=== PATIENT | female | born 1975 | race Caucasian/White ===

== ENCOUNTER 2017-11-25 17:09 | Emergency (ER) | payer MEDICAID, SELFPAY ==
[2017-11-25 17:10] VITALS: BP 102/66; PULSE 88; RESP 16; TEMP 37.1; O2SAT 98; BMI 25.2
--- NOTE | 2017-11-25 18:07 | ED.VISSUMM ---
- ER Visit Summary Date of Service: 11/25/17 Chief Complaint: Left elbow bursitis now red History of Present Illness: The patient is a 42 F had a left elbow olecranon bursitis for several months. She has not had any treatment for it. Yesterday started developing redness. No fever. There is more discomfort. She denies any fall or trauma. No prior elbow surgery. She is not diabetic. Physical Examination: Well-appearing middle-age female. Vital signs are stable and afebrile. She does not look septic or toxic. She is in no distress. H EENT exam unremarkable. Neck nontender. Lungs clear to auscultation. Heart regular rhythm no murmur. Abdomen soft nontender. She is moving all 4 extremities they are neurovascularly intact. The left elbow the posterior aspect she has an obvious bursitis. The skin over it is red and warm consistent with a cellulitis. The elbow joint has completely full range of motion. There is no signs of septic joint. There is no lymphangitic streaking. There is no axillary lymphadenopathy on the left the redness on the posterior elbow is over the bursa and is approximately 2 x 3 inches. Her left forearm, wrist and hand are nontender neurovascular Test Results: Procedure note: Let was applied her left elbow. Using a 22-gauge needle I withdrew approximately 10 cc of bloody bursa sac fluid. Patient tolerated procedure well. There was no pus. It will be sent to the lab for Gram stain, cultures and crystal evaluation. This appears to be a traumatic bursitis. Emergency Department Course and Treatment: Patient be started on p.o. Bactrim and p.o. Keflex for the cellulitis. I will attempt to obtain fluid from the left olecranon bursa and send that for culture, stain and crystals. Treatment Plan: Clinically the patient can move her elbow easily. I think she is a superficial cellulitis with an underlying traumatic bursitis. She does not have a septic arthritis. She will be treated with Keflex 4 times daily for 10 days. Bactrim twice daily for 10 days. And follow-up with Dr. Jason Don of orthopedics. To return if this looks worse, she develops a fever or is having increasing pain. Disposition: Discharge Impression: Acute left elbow olecranon bursitis Superficial cellulitis Versus aspiration by ER with pending fluid studies and cultures This note was generated with Dragon dictation software. It may contain incorrect words, spelling, and punctuation that were not noted in review of the chart prior to signing ED Disposition - Plan for ED Patient: Chief Complaint: Upper Extremity Injury Referrals: Ross Singh DO [Primary Care Provider] -
[2017-11-25] MEDS: Cephalexin 250 MG Capsule 500 MG PO ×2 (18:44→23:40)
[2017-11-25] MEDS: Lidocaine/Epi/Tetracaine 50 ML 1 APPLIC TOPICAL (18:44)
[2017-11-25] MEDS: Smz/Tmp Ds Tablet 1 TABLET PO ×2 (18:44→23:40)
--- NOTE | 2017-11-25 23:38 | ED.DEP ---
ED Disposition - Plan for ED Patient: Disposition: Home or Assisted Living Chief Complaint: Upper Extremity Injury Instructions: ED Bursitis Elbow Olecranon, ED Infec Skin Cellulitis Prescriptions: Cephalexin [Keflex] 500 mg PO Q6 #40 cap Smz/Tmp Ds [Bactrim Ds] 1 tab PO BID #20 tab Referrals: Jason Don MD [STAFF PHYSICIAN] - As soon as possible Ross Singh DO [Primary Care Provider] - As soon as possible Additional Instructions: You have an inflamed left elbow bursa sac called bursitis. This needs to be iced and elevated. Motrin for pain and inflammation. You also have a superficial cellulitis of the overlying skin. This will be treated with 2 different antibiotics Bactrim and Keflex. The Bactrim will be taken twice a day for 10 days. The Keflex 4 times a day for 10 days. Need to follow-up with your primary care physician and also see a local orthopedic physician to have this reevaluated to ensure it is not moving. If you start getting significantly worse pain, increased swelling, increased redness or fever you need to return.
[2017-11-25 23:40] LABS: Pathologist Comment May follow
[2017-11-25 23:48] VITALS: PULSE 80; RESP 20; O2SAT 97
[2017-11-26 00:46] LABS: Source / Synovial Fluid RT WRIST; Source- Body Fluid SYNOVIAL
[2017-11-26 00:47] LABS: Appearance /Synovial Fluid Cloudy (CLEAR); Color / Synovial Fluid Red (Pale Yellow)
[2017-11-26 00:48] LABS: RBC /Synovial Fluid 89600 /mm3 (0)
[2017-11-26 00:49] LABS: Viscosity / Synovial Fluid Sl. Viscous (HIGH); WBC / Synovial Fluid 464 /mm3 (0)
[2017-11-26 00:51] LABS: Total Volume / Synovial Fluid 4.5 ml (0.1-3.5)
[2017-11-26 01:07] LABS: Lymph 20 %; Monocyte /Synovial Fluid 17 %; Neutrophil 64 % (0-25)
[2017-11-26 01:17] LABS: Other Cell /Synovial Fluid 4 %
[2017-11-26 13:38] LABS: Pathologist Review Reviewed
== END 2017-11-25 23:48 | disposition home or self-care (01) ==
PROVIDERS: Emergency Provider Emergency Medicine; Family Provider Student in an Organized Health Care Education/Training Program; PCP Student in an Organized Health Care Education/Training Program
DX: M70.22 Olecranon bursitis, left elbow (principal); Z79.899 Other long term (current) drug therapy; G40.909 Epilepsy, unspecified, not intractable, without status epilepticus
CPT/HCPCS: 87070; 87075; 87205; 89050; 89051; 89060; 99283

== ENCOUNTER 2018-05-15 15:01 | Emergency (ER) | payer MEDICAID, SELFPAY ==
[2018-05-15 15:01] VITALS: BP 95/69; PULSE 78; RESP 16; TEMP 36.3; O2SAT 99; BMI 23.8
--- NOTE | 2018-05-15 15:14 | CT_ITS ---
STUDY: CT BRAIN WITHOUT CONTRAST REASON FOR EXAM: Female, 42 years old. Seizure. Hit Face RADIATION DOSAGE (If Supplied By Facility): CTDIvol = ( 44.99 ) mGy, DLP = ( 829.85 ) mGycm TECHNIQUE: Transaxial CT imaging of the brain was performed without administration of intravenous contrast material. Individualized dose optimization techniques were used for this CT. 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 There are nonspecific white matter changes. The ventricles are less in size than compared to prior study. There is minimal left facial soft tissue edema. There is hyperostosis frontalis internus. Normal size ventricles and extra-axial spaces for the patient's age. There are areas of decreased attenuation within the white matter tracts of the supratentorial brain,. Normal basal ganglia and thalami. Normal brainstem. Normal cerebellum. There is no intracranial hemorrhage. There are no findings of an acute ischemic infarction. Normal visualized paranasal sinuses. CT/Brain/Head without Contrast IMPRESSION: Decreased ventriculomegaly when compared to prior study. MEDICAL INVESTIGATOR shunt tubing as detailed above. Stable nonspecific white matter changes. The ventricular hemorrhage infarct or edema. Minimal left facial soft tissue edema. Electronically Signed: Meri Bryant MD at 15:56 EDT Tel , Service support ,
[2018-05-15] MEDS: Diphth,Pertuss(Acell),Tet Vac 0.5 ML Vial IM (15:24)
--- NOTE | 2018-05-15 16:35 | ED.DCSUM_ITS ---
- ER Visit Summary Date of Service: 05/15/18 Chief Complaint: Head injury History of Present Illness: The patient is a 42 F with history of seizures. Patient had a seizure and fell in the driveway. She is a laceration to the left lateral eyebrow. Patient reports mild headache at this time. Family does note that her seizure medication was recently decreased. She follows with a neurologist at [facility]. Physical Examination: Vital signs grossly unremarkable. Patient sitting upright in bed no acute distress. He is alert and talkative. Head neck examination reveals a 2 cm laceration to the left lateral eyebrow. There is also a skin abrasion just superior to this. Bleeding is controlled at this time. She has no C-spine tenderness. No tongue injury. Heart is regular rate and rhythm. Lung sounds are clear. Abdomen is soft nontender. Stomach examination is unremarkable. Test Results: CT head shows decreased ventriculomegaly when compared to prior. DIRECTOR OF HEMOPHILIA shunt is in place. There is no evidence of hemorrhage. Emergency Department Course and Treatment: Lamictal level was sent. Family is advised that this is a send out test and will not be available immediately. Left eyebrow laceration was anesthetized with 4 cc 1% lidocaine. Wound is cleansed. Skin is closed with 6 simple interrupted sutures of 5-0 nylon. Sutures are to be removed in 1 week. Treatment Plan: [] Disposition: Discharge Impression: 1. Seizure with history of seizure disorder 2. Left forehead laceration status post suture This note was generated with [employer] dictation software. It may contain incorrect words, spelling, and punctuation that were not noted in review of the chart prior to signing ED Disposition - Plan for ED Patient: Referrals: Ross Singh DO [Primary Care Provider] -
--- NOTE | 2018-05-15 16:36 | ED.DEP ---
ED Disposition - Plan for ED Patient: Disposition: Home or Assisted Living Instructions: ED Laceration Facial Sutr Tape Referrals: Ross Singh DO [Primary Care Provider] - 7 Days for suture removal
[2018-05-15 16:45] VITALS: BP 100/72; PULSE 68; RESP 16; O2SAT 98
[2018-05-19 11:39] LABS: Lamotrigine (Lamictal) Level 10.9 ug/mL (2.0-20.0)
== END 2018-05-15 16:45 | disposition home or self-care (01) ==
PROVIDERS: Emergency Provider Emergency Medicine; Family Provider Student in an Organized Health Care Education/Training Program; PCP Student in an Organized Health Care Education/Training Program
DX: G40.909 Epilepsy, unspecified, not intractable, without status epilepticus (principal); S01.81XA Laceration without foreign body of other part of head, initial encounter; W18.39XA Other fall on same level, initial encounter; Y93.89 Activity, other specified; Y92.9 Unspecified place or not applicable; Z98.2 Presence of cerebrospinal fluid drainage device; Z79.899 Other long term (current) drug therapy
CPT/HCPCS: 12011; 70450; 82542; 90715; 99282

== ENCOUNTER → 2018-08-25 10:26 | Outpatient (CLI) | payer MEDICAID, SELFPAY ==
--- NOTE | 2018-08-25 11:10 | BD_ITS ---
STUDY: DUAL ENERGY X-RAY ABSORPTIOMETRY / DXA REASON FOR EXAM: Female, 43 years old. Early menopause. No loss of height. TECHNIQUE: Bone Mineral Density (BMD) measurements of lumbar spine and bilateral hips were obtained. COMPARISON: None. FINDINGS: Lumbar Spine (L1-L4): g/cm2 (1.182) / T-score (0.1) / Z-score (0.1) Findings are suggestive of normal bone density with a low fracture risk. Left Femur Total: g/cm2 (1.035) / T-score (0.2) / Z-score (0.5) Left Femoral Neck: g/cm2 (0.928) / T-score (-0.8) / Z-score (-0.3) Right Femur Total: g/cm2 (1.010) / T-score (0.0) / Z-score (0.3) Right Femoral Neck: g/cm2 (0.983) / T-score (-0.4) / Z-score (0.1) BD/Dexa Bone Density Study IMPRESSION: The patient is considered normal as outlined below according to World Marvin Organization (WHO) criteria with a low fracture risk. Reference Information: The T-score is the number of standard deviations above or below the standard which is normal for young adults at their peak bone mineral density. The World Health Organization (WHO) interprets the T-scores as follows: Above -1 Normal bone density Between -1 and -2.5 Osteopenia Equal to / or below -2.5 Osteoporosis As a practical clinical guideline, osteopenia may be graded as follows: Mild -1 through -1.5 Moderate -1.6 through -2.0 Severe -2.1 through -2.4 The Z-score is the number of standard deviations above or below age-matched controls. A Z-score of less than -1.5 would be considered abnormal. References: 1. NIH Osteoporosis and Related Bone Diseases http://www.osteo.org 2. International Society for Clinical Densitometry http://www.iscd.org 3. National Osteoporosis Foundation http://www.nof.org Electronically Signed: Zaki Ledbetter, at 14:05 EDT , Service support ,
== END ==
PROVIDERS: Family Provider Student in an Organized Health Care Education/Training Program; PCP Student in an Organized Health Care Education/Training Program
DX: M81.8 Other osteoporosis without current pathological fracture (principal)
CPT/HCPCS: 77080

== ENCOUNTER 2019-02-16 10:16 | Emergency (ER) | payer MEDICAID, SELFPAY ==
[2019-02-16 10:17] VITALS: BP 108/89; PULSE 81; RESP 14; TEMP 36.8; O2SAT 95; BMI 22.4
--- NOTE | 2019-02-16 10:33 | ED.VISSUMM ---
- ER Visit Summary Date of Service: 02/16/19 Chief Complaint: Fall History of Present Illness: The patient is a 43 F who presents after a fall that occurred today. Patient states she had a drop seizure and fell down approximately 13 steps. Patient has a history of seizures. Patient denies any loss of consciousness. Patient was able to ambulate after the fall without difficulty. Patient denies any paresthesias or weakness. Patient describes her pain as dull. Patient states her pain is over the left forehead area. Patient and family believe that her immunizations are up-to-date. Patient denies any visual changes. Patient denies any nausea or vomiting. Physical Examination: Vital signs are stable. Patient is afebrile. Patient is in no acute distress. Skin is warm and dry. There is an 8 cm full-thickness linear laceration on the left forehead and left eyebrow. There is moderate gapping of the wound margins. There are no foreign bodies visualized. There is no bony crepitance or step-off noted. There is no active bleeding noted. Pupils are equal, round, and reactive to light bilaterally. Extraocular muscles are intact. Oral mucosa is pink and moist. Neck is supple. Trachea is midline. There is no JVD. Cranial nerves II through XII are intact. There are no focal motor or sensory deficits noted. Emergency Department Course and Treatment: The wound was cleaned and anesthetized 1% lidocaine with epinephrine. The wound was irrigated with copious amounts of normal saline. The wound was explored. There were no foreign bodies noted. The wound was closed with 5 simple interrupted #5-0 Vicryl subcutaneous sutures and 11 simple interrupted #6-0 nylon sutures under sterile technique. Patient tolerated the procedure well. Bacitracin dressing was applied. Patient was instructed to follow-up with her primary care physician in 5 to 7 days wound recheck and suture removal. Patient and family understood and were agreeable with the plan. All questions were answered. Disposition: Discharge home Impression: 1. Facial laceration 2. Layered laceration repair by emergency physician This note was generated with [employer] software. It may contain incorrect words, spelling, and punctuation that were not noted in review of the chart prior to signing ED Disposition - Plan for ED Patient: Disposition: Home or Assisted Living Diagnosis: Laceration of eyebrow and forehead Instructions: LACERATION, Face (Suture or Tape) Referrals: Ross Singh DO [Primary Care Provider] - 5 Days for suture removal
[2019-02-16] MEDS: BACITRACIN 15 GM Tube 1 APPLIC TOPICAL (11:37)
[2019-02-16 11:53] VITALS: BP 114/82; RESP 16
== END 2019-02-16 12:03 | disposition home or self-care (01) ==
LOC: ED 11:55
PROVIDERS: Emergency Provider Emergency Medicine; Family Provider Student in an Organized Health Care Education/Training Program; PCP Student in an Organized Health Care Education/Training Program
DX: S01.81XA Laceration without foreign body of other part of head, initial encounter (principal); W10.9XXA Fall (on) (from) unspecified stairs and steps, initial encounter; R56.9 Unspecified convulsions; Z79.899 Other long term (current) drug therapy; Z98.2 Presence of cerebrospinal fluid drainage device; J34.89 Other specified disorders of nose and nasal sinuses
CPT/HCPCS: 12004; 99283

== ENCOUNTER 2020-01-20 09:57 | Emergency (ER) | payer MEDICAID, SELFPAY ==
[2020-01-20 09:58] VITALS: BP 119/89; PULSE 76; RESP 16; TEMP 36.7; O2SAT 99; BMI 21.4
--- NOTE | 2020-01-20 10:12 | ED.VIS.GEN ---
History of Present Illness Informant: Patient Narrative: 44-year-old female with past medical history of epilepsy presents with complaints of facial lacerations after she had a seizure. She states she has breakthrough seizures frequently and takes Lamictal. She was going down the steps when she had a seizure and fell forward approximately 2-3 steps and hit her face on the ground. No LOC. She has a laceration on her right forehead and above her right lip with swelling of her upper lip. She thinks she cracked her teeth. Denies headache, nausea, vomiting, and changes, speech changes, focal motor or sensory changes, chest pain, abdominal pain, back pain, or extremity pain. <Nataly Ashley - Last Filed: 01/20/20 11:32> <Marlon Padron - Last Filed: 01/20/20 12:46> Chief Complaint: Laceration Past Medical History Past Medical History: - - Epilepsy Smoking Status: Never smoker <Nataly Ashley - Last Filed: 01/20/20 11:32> <Marlon Padron - Last Filed: 01/20/20 12:46> - Allergies and Home Meds Allergies/Adverse Reactions: Allergies No Known Allergies Allergy (Verified 01/20/20 09:57) Primary Care Physician: Ross Singh DO [Primary Care Provider] - Review of Systems General: Denies: Chills, Fever, Sweats Eyes: Denies: Visual changes - bilaterally, Diplopia ENT: Denies: Rhinorrhea, Sore throat Cardiovascular: Denies: Chest pain, Palpitations Respiratory: Denies: Dyspnea, Cough, Dyspnea on exertion Gastrointestinal: Denies: Abdominal pain, Nausea, Vomiting, Diarrhea, Melena, Hematochezia Genitourinary: Denies: Dysuria, Hematuria, Frequency Musculoskeletal: Denies: Back pain, Extremity Pain Skin: Reports: Abrasions, Wounds. Denies: Rash Neurological: Denies: Headache, Weakness, Parasthesia, Numbness <Nataly Ashley - Last Filed: 01/20/20 11:32> Physical Exam Vital Signs/Narrative: Vital Signs Temp Pulse Resp BP Pulse Ox 01/20/20 09:58 98.1 F 76 16 119/89 H 99 Inital Vital Signs reviewed: Yes General: Well nourished, Well developed, No Acute Distress Head: - - 3 cm laceration/skin avulsion on right frontal region down to frontalis muscle. Small abrasion over right cheek and right upper lip. No lacerations or involvement of the vermilion border. Eyes: Perrl, EOMI ENT: Moist mucous membranes, - - No facial bony tenderness or crepitus. No raccoon eyes or vazquez sign, no hemotympanum, no septal hematoma, no CSF otorrhea or rhinorrhea. Neck: Supple, Nontender Cardiovascular: Regular rate, Regular rhythm, No murmurs Respiratory: No distress, CTA bilaterally, Chest nontender Abdomen: Soft, Nontender, Nondistended Back: Nontender, Normal Inspection Extremities: Nontender, No edema Skin: Normal color, No rash Neurological: Alert, Oriented x3, Cranial nerves II-XII grossly intact, Normal Strength, Normal Sensation Psychological: Normal affect, Normal Mood <Nataly Ashley - Last Filed: 01/20/20 11:32> Vital Signs/Narrative: Vital Signs Temp Pulse Resp BP Pulse Ox 01/20/20 12:00 72 18 124/75 H 97 01/20/20 09:58 98.1 F 76 16 119/89 H 99 <Marlon Padron - Last Filed: 01/20/20 12:46> Diagnostic/Tx/Re-eval Patient presented with a facial laceration and abrasions after a seizure. She has a known history of epilepsy and frequently has breakthrough seizures. She is feeling back to baseline. She has a 3 cm laceration on her right frontal scalp that has a partial skin avulsion. She also has abrasions over the right cheek and right upper lip. Neurovascularly intact. No bony tenderness or signs of basilar skull fracture. According to [place] CT head rule, she does not require imaging. The right frontal scalp laceration was anesthetized with 3 cc of 1% lidocaine and thoroughly irrigated with sterile saline. It was closed with 6-0 Ethilon [address] 7 simple interrupted sutures with good wound approximation. Discussed wound care and that they need removed in 4 to 5 days. The abrasions were cleaned and covered with sterile dressings. Tetanus was updated. She was discharged home in stable condition. 1. Scalp laceration?sutured 2. Facial abrasions 3. Head injury without loss of consciousness 4. Breakthrough seizure with history of epilepsy <Nataly Ashley - Last Filed: 01/20/20 11:32> - Medical Decision Making An independent history and physical was performed by me. Patient has seizure. She presents because of laceration right side of the forehead. She does report mild headache. Denies double vision, blurred vision loss vision. Denies ringing in ears. Denies drainage from ears. Denies neck pain. Denies paresthesia, anesthesia motors presently or what she can recall after the fall. Patient has a laceration that is down to the frontalis fascia. This will require repair. The laceration was repaired by the physician client account assistant. GCS is 15. She is alert oriented x3. Motor is 5 5. Sensations intact. DTRs are symmetric with no clonus or Babinski. Cranial 2 through 12 intact. Finger-nose to finger was performed adequately. Patient was discharged with appropriate home-going instructions. She was in stable and improved condition. <Mralon Padron - Last Filed: 01/20/20 12:46> ED Disposition <Nataly Ashley - Last Filed: 01/20/20 11:32> <Marlon Padron - Last Filed: 01/20/20 12:46> - Plan for ED Patient: Disposition: Home or Assisted Living Diagnosis: Facial laceration, Facial abrasion, Head injury, closed, without LOC Instructions: ED Abrasion, ED Laceration All Closures Referrals: Ross Singh DO [Primary Care Provider] -
[2020-01-20] MEDS: Diphth,Pertuss(Acell),Tet Vac 0.5 ML Vial IM (10:24)
[2020-01-20] MEDS: Lidocaine 1% (20 ml mdv) 20 ML Vial 30 ML INFILT (11:00)
[2020-01-20 12:00] VITALS: BP 124/75; PULSE 72; RESP 18; O2SAT 97
== END 2020-01-20 12:10 | disposition home or self-care (01) ==
LOC: ED 11:51
PROVIDERS: Emergency Provider Physician Assistant; PCP Student in an Organized Health Care Education/Training Program
DX: S01.81XA Laceration without foreign body of other part of head, initial encounter (principal); S09.90XA Unspecified injury of head, initial encounter; G40.909 Epilepsy, unspecified, not intractable, without status epilepticus; W10.9XXA Fall (on) (from) unspecified stairs and steps, initial encounter
CPT/HCPCS: 12002; 90471; 90715; 99283